=== PATIENT | male | born 1960 ===

== ENCOUNTER 2023-04-01 13:40 | Emergency (ER) | payer OTHER ==
[~2023-04-01] VITALS: Ht 175.3 cm; Wt 68.2 kg
[2023-04-01 16:41] LABS: BASOPHILS % (AUTO) 0.6 % (0.0-2.0); EOSINOPHILS % (AUTO) 3.7 % (1.0-6.0); HEMATOCRIT 33.5 % (41-53); HEMOGLOBIN 10.6 g/dL (13.5-17.5); LYMPHOCYTES # (AUTO) 1.4 K/uL (1.0-4.8); MEAN CORPUSCULAR HEMOGLOBIN 26.7 pg (26.0-34.0); MEAN CORPUSCULAR HGB CONC 31.6 G/dL (31.0-37.0); MEAN CORPUSCULAR VOLUME 85 fL (80-100); MONOCYTES # (AUTO) 0.6 K/uL (0.1-1.0); MONOCYTES % (AUTO) 7.2 % (2.0-9.0); NEUTROPHILS # (AUTO) 5.5 K/uL (1.8-7.7); NEUTROPHILS % (AUTO) 70.5 % (40.0-70.0); PLATELET COUNT (AUTO) 645 K/uL (150-450); RED BLOOD CELL COUNT(AUTO) 3.96 MIL/uL (4.50-5.90); RED CELL DISTRIBUTION WIDTH 19.2 % (11.5-14.5); WHITE BLOOD COUNT (AUTO) 7.7 K/uL (4.5-11.0)
[2023-04-01 16:49] LABS: COVID AG,FIA SOURCE NASAL SWAB
[2023-04-01 16:56] LABS: PH,URINE DRUG SCREEN 7.5 (5.0-8.0)
[2023-04-01 16:56] LABS: ANION GAP 5 mmol/L (8-16); CALCIUM, TOTAL 8.7 mg/dL (8.8-10.5); CARBON DIOXIDE 30 mmol/L (22-29); CHLORIDE 102 mmol/L (98-107); CREATININE 0.54 mg/dL (0.60-1.30); GLOMERULAR FILTR. RATE CALC > 60 mL/min (>60); GLUCOSE,RANDOM 160 mg/dL (70-110); POTASSIUM 4.1 mmol/L (3.5-5.1); SODIUM SERUM 137 mmol/L (136-145); UREA NITROGEN, BLOOD 15 mg/dL (7-18)
[2023-04-01] MEDS ORDERED: GABA-1181 PO (17:00)
[2023-04-01] MEDS ORDERED: ACET-3385 PO (17:00)
[2023-04-01] MEDS ORDERED: NAPR-1025 PO (17:00)
[2023-04-01] MEDS ORDERED: LIDO1ADH23 TP (17:00)
[2023-04-01] MEDS ORDERED: MELA5TAB40 PO (17:00)
[2023-04-01 17:02] LABS: AMPHET/METH SCREEN,URINE POSITIVE (NEGATIVE); BARBITURATE SCREEN, URINE NEGATIVE (NEGATIVE); BENZODIAZEPINES SCREEN,URINE NEGATIVE (NEGATIVE); CANNABINOID SCREEN,URINE NEGATIVE (NEGATIVE); COCAINE SCREEN,URINE NEGATIVE (NEGATIVE); METHADONE SCREEN, URINE NEGATIVE (NEGATIVE); OPIATE SCREEN,URINE NEGATIVE (NEGATIVE); PHENCYCLIDINE SCREEN,URINE NEGATIVE (NEGATIVE)
[2023-04-01 17:04] LABS: ALCOHOL, URINE DRUG SCREEN NEGATIVE (NEGATIVE)
[2023-04-01 17:05] LABS: ALANINE AMINOTRANSFERASE 28 U/L (12-78); ALBUMIN 2.4 g/dL (3.4-5.0); ALKALINE PHOSPHATASE 237 U/L (46-116); ASPARTATE AMINOTRANSFERASE 20 U/L (15-37); BILIRUBIN,TOTAL 0.3 mg/dL (0.1-1.0); TOTAL PROTEIN, SERUM 6.3 g/dL (6.4-8.2)
[2023-04-01] MEDS ORDERED: GABAPENTIN 300 MG CAPSULE PO ONE (17:15)
[2023-04-01 18:12] LABS: SARS-COV2 (COVID) ANTIGEN,FIA Negative (Negative)
[2023-04-01 18:43] LABS: ALCOHOL, BLOOD (SERUM) < 3 mg/dL (0-10)
[2023-04-01] MEDS ORDERED: HALOPERIDOL LACTATE 5 MG/ML VIAL ONE (18:47)
[2023-04-01] MEDS ORDERED: LORazepam 2 MG/ML VIAL ONE (18:47)
[2023-04-01] MEDS ORDERED: DiphenhydrAMINE HCL 50 MG/ML VIAL ONE (18:47)
[2023-04-01] MEDS ORDERED: OLANZapine 5 MG TABLET PO ONE (21:30)
[2023-04-01] MEDS ORDERED: LORazepam 1 MG TABLET PO ONE (21:30)
[2023-04-01] MEDS ORDERED: DiphenhydrAMINE HCL 25 MG CAPSULE PO ONE (21:30)
[2023-04-02] MEDS ORDERED: ZOLPIDEM TARTRATE 10 MG TABLET PO PRN (01:15)
[2023-04-02] MEDS ORDERED: HALOPERIDOL 5 MG TABLET PO PRN (01:15)
[2023-04-02] MEDS ORDERED: OxyCODONE HCL/ACETAMINOPHEN 5-325 MG TABLET PO ONE (10:30)
[2023-04-02] MEDS: GABAPENTIN 300 MG CAPSULE PO SCH ×3 (11:30→21:33)
[2023-04-02] MEDS ORDERED: GABAPENTIN 300 MG CAPSULE PO SCH (16:00)
[2023-04-02] MEDS: LORazepam 2 MG TABLET PO PRN (21:33)
[2023-04-03 06:22] VITALS: TEMP 97.5
[2023-04-03] MEDS ORDERED: CEPHALEXIN MONOHYDRATE 500 MG CAPSULE PO ONE (07:15)
[2023-04-03] MEDS ORDERED: OxyCODONE HCL/ACETAMINOPHEN 10-325 MG TABLET PO ONE (07:15)
[2023-04-03] MEDS ORDERED: ONDANSETRON HCL 4 MG TABLET PO ONE (07:15)
[2023-04-03] MEDS: GABAPENTIN 300 MG CAPSULE PO SCH (09:07)
[2023-04-03] MEDS: LORazepam 2 MG TABLET PO PRN (11:31)
[2023-04-03] MEDS ORDERED: CEPH-558 PO (13:51)
[2023-04-03 14:47] VITALS: BP 107/84; PULSE 110; RESP 16
== END 2023-04-03 16:45 | disposition home or self-care (01) ==
LOC: EMS 13:48
DX: F31.9 Bipolar disorder, unspecified (principal); R45.851 Suicidal ideations; F15.10 Other stimulant abuse, uncomplicated; Z20.822 Contact with and (suspected) exposure to COVID-19
CPT/HCPCS: 99285; 87426; 80053; 85025; 36415; 80307; G0480; J1200; J1630; J2060